=== PATIENT | male | born 1945 ===

== ENCOUNTER 2022-03-30 10:30 | Inpatient (IN) | payer MEDICARE ==
[~2022-03-30] VITALS: Ht 175.3 cm; Wt 73.6 kg
[2022-03-30] MEDS ORDERED: Norco 10-325 T1 EACH PO (14:42)
[2022-03-30] MEDS ORDERED: ELIQUIS5 M2 PO (14:43)
[2022-03-30] MEDS ORDERED: FURO40 PO (14:45)
[2022-03-30] MEDS ORDERED: LEVSOD75 PO (14:46)
[2022-03-30] MEDS ORDERED: TAMS.4ER PO (14:47)
[2022-03-30] MEDS ORDERED: METO50ER PO (14:48)
[2022-03-30] MEDS ORDERED: NORT10 PO (14:49)
[2022-03-30] MEDS ORDERED: PANT40 PO (14:49)
[2022-03-30] MEDS ORDERED: DILT180 PO (14:52)
[2022-03-30] MEDS ORDERED: MUPIROCIN1 G1 TOP (14:53)
[2022-03-30] MEDS ORDERED: INSULANI SC (14:54)
[2022-03-30 15:23] LABS: Hematocrit 33.3 % (37.0-53.0); Hemoglobin 10.4 g/dL (13.5-17.5); Mean Corpuscular HGB 32.9 pg (26.0-34.0); Mean Corpuscular HGB Conc 31.2 g/dL (31.5-36.5); Mean Corpuscular Volume 105 fL (80-100); Mean Platelet Volume 9.1 fL (9.1-12.4); Platelet Count 166 K/mm3 (150-400); RDW Coefficient Variation 17.3 % (11.7-14.2); RDW Standard Deviation 68.5 fL (35.1-46.3); Red Blood Cell Count 3.16 M/mm3 (4.30-5.90); White Blood Cell Count 11.75 K/mm3 (4.00-11.30)
[2022-03-30 15:37] LABS: Albumin, Blood 1.9 g/dL (3.4-5.0); Anion Gap 7 mmol/L (6-16); Blood Urea Nitrogen 29 mg/dL (8-24); Bun/Creatinine Ratio 4.8 (12.0-20.0); CO2, Blood 28 mmol/L (21-32); Calcium, Blood 8.7 mg/dL (8.5-10.1); Chloride, Blood 103 mmol/L (98-108); Creatinine, Blood 6.09 mg/dL (0.60-1.20); Glomerular Filtration Rate 9 (60-); Glucose, Blood 101 mg/dL (70-99); Phosphorus, Blood 3.4 mg/dL (2.5-4.9); Potassium, Blood 3.9 mmol/L (3.5-5.5); Sodium, Blood 138 mmol/L (136-145)
--- NOTE | 2022-03-30 17:21 | NUR ---
SHIFT SUMMARY MR OQUENDO ARRIVED VIA [facility] TRANSPORT TO [facility] AT 1235 THIS AFTERNOON. HE IS AWAKE, ALERT, ORIENTATED X4. ABLE TO ANSWER QUESTIONS REGARDING MEDICAL HISTORY AND MEDICATIONS, THOUGH HE WAS NOT SURE OF SOME OF THE MEDICATION DOSES. VM LEFT ON HIS 'S ANSWERING MACHINE TO CLARIFY SOME OF THE MEDICATIONS. NO RESP DISTRESS OR COUGH ON ROOM AIR. ONLY C/O PAIN IS TO LEFT HIP. HE SAID THAT HE HAD HIP/FEMUR SURGERY IN 2021 AND HAS RESULTING PRESSURE ULCERS TO COCCYX AND BOTH HEELS. COCCYX AREA IS DISCOLORED PURPLE BUT NO OPEN WOUND. MEPILEX APPLIED. LEFT HEEL WOUND IS A DEEP TISSUE WOUND R HEEL WOUND IS A SEMI DEEP TISSUE WOUND. BOTH HAD PURULANT EXUDATE. HEEL WOUNDS CLEANSED AND REDRESSED WITH CALCIUM ALGINATE PACKING, ABD PAD AND KERLEX WRAPS. SKIN TEAR TO LEFT FOREARM HAD MODERATE BLOODY DRAINAGE, CLEANSED AND NON-ADHESIVE DRESSING AND KERLEX WRAP APPLIED. MULTIPLE BRUISES AND SCABS TO ARMS AND LEGS. BOTH LOWER LEGS ARE DISCOLOURED PURPLE. RLE 2+ EDEMA. LLE 1+ EDEMA. AUDABLE PEDAL PULSES BY DOPPLAR. PT HAS NO SENSATION TO HANDS OR FEET. PHOTOGRAPHS TAKEN OF ALL WOUNDS AND SKIN CARE DOUBLE CHECK DONE WITH JUAN WITT. MESSAGE LEFT FOR DR BAIN QUESTIONING IF THERE SHOULD BE AN ORDER FOR AN AIR MATTRESS. PT SAID HE HAS HAD MULTIPLE FALLS AT HOME DUE TO POOR MOBILITY AND BALANCE. HE USES A WALKER AND A WHEELCHAIR AT HOME. ON BEDREST HERE. BED ALARM ON AND CALL LIGHT IN REACH. PT HAS LEFT ARM FISTULA WITH GOOD BRUIT AND THRILL. HE DOES HOME HEMODIALYSIS 3-4 TIMES A WEEK. BEDSIDE HEMODIALYSIS BEING DONE AT THIS TIME. PER REPORT PT RECEIVED 1GM IV [facility] AT [facility] E[facility]LY THIS AM. PHARMACY NOTIFIED OF THIS INFORMATION AND SCHEDULING DOSES ACCORDINGLY. [facility] SCHEDULED FOR 12 AM. PIPERACILLIN INFUSING NOW, OK TO INFUSE WITH DIALYSIS PER PHARMACIST HUGO. CONSULT TO DR RODRIGUEZ CALLED AT 1323. CONSULT TO DR MARTIENZ - CALLED AT 1423 AND LEFT . PT SAID HE VOIDS OCCASIONALLY. HAS NOT VOIDED SINCE BEING AT [facility]. HE SAID HE HAD A NORMAL BM YESTERDAY 03/29, DENIED ANY CONCERNS.
[2022-03-31 04:58] LABS: BASOPHILS ABSOLUTE AUTO 0.07 K/mm3 (0.00-0.23); BASOPHILS PERCENT AUTO 1 % (0-2); EOSINOPHILS ABSOLUTE AUTO 0.22 K/mm3 (0.00-0.68); EOSINOPHILS PERCENT AUTO 2 % (0-6); Hematocrit 31.7 % (37.0-53.0); Hemoglobin 10.3 g/dL (13.5-17.5); IMMATURE GRAN ABSOLUTE AUTO 0.07 K/mm3 (0.00-0.10); IMMATURE GRAN PERCENT AUTO 1 % (0-1); LYMPHOCYTES ABSOLUTE AUTO 0.81 K/mm3 (0.84-5.20); LYMPHOCYTES PERCENT AUTO 8 % (21-46); MONOCYTES ABSOLUTE AUTO 1.28 K/mm3 (0.16-1.47); MONOCYTES PERCENT AUTO 13 % (4-13); Mean Corpuscular HGB 33.2 pg (26.0-34.0); Mean Corpuscular HGB Conc 32.5 g/dL (31.5-36.5); Mean Corpuscular Volume 102 fL (80-100); Mean Platelet Volume 8.6 fL (9.1-12.4); NEUTROPHILS ABSOLUTE AUTO 7.26 K/mm3 (1.96-9.15); NEUTROPHILS PERCENT AUTO 75 % (41-73); Platelet Count 169 K/mm3 (150-400); RDW Coefficient Variation 16.9 % (11.7-14.2); RDW Standard Deviation 63.7 fL (35.1-46.3); White Blood Cell Count 9.71 K/mm3 (4.00-11.30)
--- NOTE | 2022-03-31 05:29 | NUR ---
BUSINESS COMPUTERS TEACHER SUMMARY PT RECVNG HEMODIALYSIS AT BEDSIDE AT THE START OF THE SHIFT; DIALYSIS NURSE REPORTED 3 LITER'S OF FLUID REMOVED. LEFT ARM BANDAGED POST DIALYSIS W/SOME BLEEDING. MONITORED ONGLING F/BLEEDING. FISTULA PATENT. PT HAS HAD SOFT BLOOD PRESSURES--SCHEDULED METOPROLOL WITHELD; BP 87/70 AND 89/53. PT HAS BEEN A/OX4 AND ASYMPTOMATIC. IMAGING AT BEDSIDE F/XRAY OF BLE/FEET/ANKELS; AND ULTRASOUND. PT TOLERATED WELL. BANDAGED WOUNDS TO BOTH FEET AND COCCYX WOUND W/MEPILEX. ASSESSED BANDAGES--ALL CDI. CHANGED OUT HOSPTIAL BED F/SPECIALIZED BED W/AIR MATTRESS P/ORDER. PT HAS BEEN PLEASANT AND COOPERATIVE. C/O PAIN IN HIP; MED P/EMAR X2. NO URINE OUTPUT THIS SHIFT. CALL LIGHT IN REACH. BED ALARM ON.
[2022-03-31 05:46] LABS: Albumin, Blood 1.8 g/dL (3.4-5.0); Anion Gap 8 mmol/L (6-16); Blood Urea Nitrogen 17 mg/dL (8-24); Bun/Creatinine Ratio 4.3 (12.0-20.0); CO2, Blood 29 mmol/L (21-32); Calcium, Blood 8.1 mg/dL (8.5-10.1); Chloride, Blood 97 mmol/L (98-108); Creatinine, Blood 3.96 mg/dL (0.60-1.20); Glomerular Filtration Rate 15 (60-); Glucose, Blood 98 mg/dL (70-99); Magnesium, Blood 2.1 mg/dL (1.6-2.4); Phosphorus, Blood 2.5 mg/dL (2.5-4.9); Potassium, Blood 3.6 mmol/L (3.5-5.5); Sodium, Blood 134 mmol/L (136-145); Vancomycin, Random 8.1 ug/mL
--- NOTE | 2022-03-31 13:27 | NUR ---
DR. ZIMMER CONTACTED DR. ZIMMER ORDERED PROVIDER CONSULT FOR DR. VALLADARES-BLAINE UNAVAILABLE UNTIL , PLAN TO CONSULT @ THAT TIME
--- NOTE | 2022-03-31 14:58 | NUR ---
DR. ERIC NOTIFIED ABOUT BLAINE ERIC PLANS TO TALK TO BLAINE TOMORROW ABOUT PT.
--- NOTE | 2022-03-31 19:22 | NUR ---
SHIFT SUMMARY PT A&OX4 AND IN PLEASENT MOOD T/O SHIFT. PT RESTED COMFORTABLY IN BED, PAIN MEDICATED PER EMAR. FEET PLACED IN FOAM FLOATERS PER DR. ZIMMER ORDERS-BLAINE CONSULT PENDING UNTIL RETURN-DR. ERIC PLANS TO DISCUSS CASE W/ DR. VALLADARES TOMORROW. TOLERATING PO INTAKE WELL @ THIS TIME. CALL LIGHT W/IN REACH. VERY LOW URINE OUTPUT DUE TO HD. TELE IN PLACE.
--- NOTE | 2022-04-01 05:16 | NUR ---
DERMATOLOGY PHYSICIAN ASSISTANT SUMMARY NO ACUTE CHANGES; PT PLEASANT AND COOPERATIVE. BLOOD PRESSURES SOFT OVERNIGHT--PT ASYMPTOMATIC; WITHELD METOPROLOL AT 2100. HS BS 71; GAVE PT A POPSICLE. PT C/O OF PAIN RT T/RT HIP FX--MED P/EMAR. SKIN VERY FRAGILE--DRESSING CDI; FOAM HEEL PROTECTORS INPLACE. NO URINE OUTPUT THIS SHIFT. PT ABLE TO MAKE NEEDS KNOWN. CALL LIGHT IN REACH.
[2022-04-01 06:04] LABS: Vancomycin, Random 20.7 ug/mL
--- NOTE | 2022-04-01 09:59 | NUR ---
dr Winn Consult order Called to the [facility] answering service per Dr Dumont direction. Message left. Continue POC.
--- NOTE | 2022-04-01 10:07 | NUR ---
LOW BP TALKED WITH DR ERIC ABOUT PT LOW BP AND HIS MORNING MEDICATIONS. REPORT THAT THIS NURSE HELD METOPROLOL AND CARDIZEM. DR ERIC WILL REVIEW PT MEDICATIONS. CONTINUE POC.
--- NOTE | 2022-04-01 16:44 | NUR ---
PT RESTED THROUGH THE AFTERNOON. WOUND CARE DONE TO BILATERAL FEET PER ORDER. MEDCIATED FOR HIP PAIN X1. EFFECTIVE. NPO FOR LUNCH PER ORDER. CONTINUE POV.
[2022-04-01] MEDS ORDERED: ALLOPURINOL100 M1 PO (23:00)
[2022-04-01] MEDS ORDERED: CALCIUM CARBON200 M1 PO (23:03)
[2022-04-01] MEDS ORDERED: DOCU100 PO (23:04)
[2022-04-01] MEDS ORDERED: Rena-Vite Tabl0.8 MG PO (23:04)
[2022-04-01] MEDS ORDERED: CATAPRES0.1 MG PO (23:06)
[2022-04-01] MEDS ORDERED: ESZO3 PO (23:07)
[2022-04-01] MEDS ORDERED: Cipro500 MG PO (23:08)
--- NOTE | 2022-04-02 04:12 | NUR ---
NIGHT SHIGT SUMMARY NO ACUTE CHANGES. PT HAD BM 2X THIS SHIFT. STOOL VERY HARD/FORMED. PT AGREEABLE TO STARTING BOWEL CARE--WILL FOLLOW UP W/DAY SHIFT. PT TAKING NORCO DAILY F/PAIN R/T LEFT HIP FX/REPAIR. CHANGED MEPILEX T/COCCYX; AREA RED/RAW. BILATERAL HEEL WOUNDS HAVE MEPILEX AND FOAM PROTECTORS IN PLACE. SKIN VERY FRAGILE. REMAINS ON SPECIALTY AIR MATTRESS. PT HX OF AFIB; 2100 METOPROLOL GIVEN--BP 110/71; 95BPM (MED HAS BEEN WITHHELD PREVIOUS SHIFTS). PT A/OX4. ABLE TO MAKE NEEDS KNOWN. CALL LIGHT IN REACH.
[2022-04-02 05:30] LABS: Albumin, Blood 1.8 g/dL (3.4-5.0); Anion Gap 9 mmol/L (6-16); Blood Urea Nitrogen 31 mg/dL (8-24); Bun/Creatinine Ratio 5.1 (12.0-20.0); CO2, Blood 27 mmol/L (21-32); Calcium, Blood 8.4 mg/dL (8.5-10.1); Chloride, Blood 99 mmol/L (98-108); Creatinine, Blood 6.12 mg/dL (0.60-1.20); Glomerular Filtration Rate 9 (60-); Glucose, Blood 57 mg/dL (70-99); Phosphorus, Blood 3.6 mg/dL (2.5-4.9); Potassium, Blood 3.9 mmol/L (3.5-5.5); Sodium, Blood 135 mmol/L (136-145); Vancomycin, Random 18.7 ug/mL
--- NOTE | 2022-04-02 14:48 | NUR ---
WOUND CARE- PT BL HEEL WOUND CARE ORDERS FOR SANTYL WITH DAILY CHANGES. HOSPITAL FORMULA DOES NOT STOCK. RECIEVED TELEPHONE ORDERS FROM DR. MARTINEZ TO CHANGE PRIMARY DRESSING TO HYDROGEL WITH DAILY CHANGES. PT LOW BG AND NON PATENT IV ARE BEING ADDRESSED DURING WC RN VISIT. WC RN WILL RETURN 04/03/22. CALCIUM ALGINATE/BORDERED FOAM CURRENTLY IN PLACE
--- NOTE | 2022-04-02 18:59 | NUR ---
SHIFT SUMMARY PT RECEIVED DIALYSIS TODAY AND HAD MANY EPISODES OF HYPOGLYCEMIA. BLOOD GLUCOSE CURRENTLY STABLE. WOUND CARE NURSE CONSULTED AND CONTINUES TO BE SEEN BY DOCTOR VALLADARES.
[2022-04-02 22:06] LABS: HBSAG SCREEN Negative (Negative)
--- NOTE | 2022-04-03 04:03 | NUR ---
SHIFT SUMMARY ADMITTED FOR AMS/FOOT ULCERS. FULL CODE. AWAITING IR EVALUATION FOR POSSIBLE REVASCULARIZATION. DR. VALLADARES IS IR CONSULT. DR. MARTINEZ IS PODIATRY CONSULT. DIALYSIS PT. POWERGLIDE IN PLACE RUE. IV ANTIB RX ARE SCHEDULED. PRESSURE ULCER ON COCCYX. FISTULA ON LUE. HYPOGLYCEMIA NOTED ON PREVIOUS SHIFTS. A&O X4, ON RA. HE IS ON BEDREST HERE. HEPARIN IS SCHEDULED. NORCO GIVEN FOR PAIN.
[2022-04-03 05:07] LABS: Vancomycin, Random 14.2 ug/mL
--- NOTE | 2022-04-03 18:24 | NUR ---
SHIFT SUMMARY PT HAS BEEN RESTING QUIETLY SINCE [facility]IVING [facility]. PT C/O 12/06 TO THE LEFT HIP, MEDICATED PER EMAR. R GROIN SITE IS SOFT, NONTENDER, WITH NO HEMATOMA NOTED, DISTAL PULSES ARE PRESENT AND EQUAL THOUGH FAINT. L MEDIAL ANKLE SITE IS NONTENDER WITH NO HEMATOMA NOTED. BLE ARE DARK AND LEATHERY.
--- NOTE | 2022-04-03 23:58 | NUR ---
CARE ASSUMPTION: PATIENT IN BED, REVASC SITE C/D/I AND WNL. LUNG SOUNDS CLEAR T/O. BLE SKIN LEATHERY AND PATIENT REPORTS NO FEELING IN BLE. DENIES CHEST PAIN OR SOB. A&O X4. BED LOW WITH CALL LIGHT IN REACH.
--- NOTE | 2022-04-04 06:23 | NUR ---
SHIFT SUMMARY: PATIENT Q2 TURNS, VS WNL, ENDORSES PAIN IN HIPS, DENIES CHEST PAIN/SOB/N/V. NO ADVERSE EVENTS THIS SHIFT. ANGIO SITE C/D/I/WNL. MEDICATED PER EMAR. POWERGLIDE DRAWS AND FLUSHES. BED LOW WITH CALL LIGHT IN REACH.
[2022-04-04 07:00] LABS: Vancomycin, Random 21.8 ug/mL
[2022-04-04 10:23] LABS: Albumin, Blood 1.8 g/dL (3.4-5.0); Anion Gap 9 mmol/L (6-16); Blood Urea Nitrogen 22 mg/dL (8-24); Bun/Creatinine Ratio 4.3 (12.0-20.0); CO2, Blood 22 mmol/L (21-32); Calcium, Blood 8.3 mg/dL (8.5-10.1); Chloride, Blood 104 mmol/L (98-108); Creatinine, Blood 5.17 mg/dL (0.60-1.20); Glomerular Filtration Rate 11 (60-); Glucose, Blood 97 mg/dL (70-99); Phosphorus, Blood 3.3 mg/dL (2.5-4.9); Potassium, Blood 5.1 mmol/L (3.5-5.5); Sodium, Blood 135 mmol/L (136-145)
--- NOTE | 2022-04-04 17:37 | NUR ---
SHIFT SUMMARY; ASSUMED CARE AT 0700. A/A/OX4. DIALYSIS COMPLETE TODAY, TOLERATED WELL. BED BATH WITH LINEN CHANGE, Q2 TURNS, ATTENDS CHANGE FOR INCONTINANT STOOL. NO URINE OUTPUT DURING SHIFT, BASELINE FOR PT. BILATERAL LOWER LEG DISCOLORATION FROM BELOW KNEE TO FEET. BLACK TO PURPLE IN COLOR. BILATERAL PEDAL PULSES PALBABLE. LEFT REVASC SITE DRESSING TO CLEAN DRY AND INTACT WITHOUT HEMATOMA. BILATERAL HEEL PRESSURE SORES OPEN AND WHEEPING. PHOTOS IN CHART. MEPLIX HEEL PROTECTORS PLACED, FOAM BOOTIES IN PLACE AND LEGS ELEVATED ON PILLOWS. RIGHT HIP REVASC SITE WITH TEGADERM C/D/I, NO HEMATOMA NOTED. VSS, NO ACUTE CHANGES, WILL CONTINUE TO MONITOR AND TREAT UNTIL CHANGE OF SHIFT.
--- NOTE | 2022-04-05 05:28 | NUR ---
SHIFT SUMMARY: PATIENT A&O X4, GROIN SITE C/D/I WNL, VSS ON RA. MEDICATED PER EMAR. PATIENT PLEASANT AND COOPERATIVE WITH CARE. Q2 TURNS AND PATIENT HAS REPOSITIONED SELF IN BED A COUPLE TIMES T/O NIGHT. POWERGLIDE PATENT AND DRAWS. USES CALL LIGHT APPROPRIATELY. NO ADVERSE EVENTS THIS SHIFT. BED LOW WITH ALARM SET AND CALL LIGHT IN PLACE. WILL CONTINUE TO MONITOR UNTIL REPORT TO DAY RN.
--- NOTE | 2022-04-05 18:00 | NUR ---
SHIFT SUMMARY; ASSUMED CARE AT 0700. A/A/OX4, PLEASANT AND COOPERATIVE WITH CARE. ASSISTED WITH REPOSITIONING Q2. LEGS AND HEELS ELEVATED WITH PILLOWS. BILATERAL MEPILEX CHANGED TO HEELS, HEEL BOOTIES ON DURING SHIFT. VSS, NO ACUTE MEDICAL CHANGES DURING SHIFT. WILL CONTINUE TO MONITOR AND TREAT UNTIL CHANGE OF SHIFT.
[2022-04-06 03:51] LABS: Albumin, Blood 1.7 g/dL (3.4-5.0); Anion Gap 7 mmol/L (6-16); Blood Urea Nitrogen 40 mg/dL (8-24); Bun/Creatinine Ratio 8.7 (12.0-20.0); CO2, Blood 27 mmol/L (21-32); Calcium, Blood 8.2 mg/dL (8.5-10.1); Chloride, Blood 99 mmol/L (98-108); Creatinine, Blood 4.59 mg/dL (0.60-1.20); Glomerular Filtration Rate 13 (60-); Glucose, Blood 102 mg/dL (70-99); Phosphorus, Blood 3.3 mg/dL (2.5-4.9); Potassium, Blood 5.4 mmol/L (3.5-5.5); Sodium, Blood 133 mmol/L (136-145)
--- NOTE | 2022-04-06 04:07 | NUR ---
SHIFT SUMMARY NO ACUTE CHANGES THIS SHIFT. VSS. AXO. BEING TURNED BY STAFF WHEN PATIENT ALLOWING. HEELS ALWAYS FLOATING WITH PILLOWS AND HEEL PROTECTORS IN PLACE. REMAINS AFLUTTER. OVERALL IMPOVEMENT NOTED TO HEEL WOUNDS. PT RESTING OFF AND ON T/O SHIFT.
--- NOTE | 2022-04-06 09:12 | NUR ---
CARE NOTE PT DOWN TO DIALYSIS AT 0900, CARDIAC MEDS HELD UNTIL PT RETURNS FROM DIALYSIS TO ASSIST W/ STABLE BP. WILL REASSESS WHEN PT RETURNS FROM DIALYSIS.
[2022-04-06] MEDS ORDERED: Amiodarone HCl200 MG PO (17:56)
[2022-04-06] MEDS ORDERED: JUVEN PACKET1 EAC3 PO (17:57)
[2022-04-06] MEDS ORDERED: Vitamin B-Comp1 EACH PO (17:59)
[2022-04-06] MEDS ORDERED: SENN187 PO (18:00)
[2022-04-06] MEDS ORDERED: Promod946 ML PO (18:00)
[2022-04-06] MEDS ORDERED: VISBIOME 112.51 EACH PO (18:01)
--- NOTE | 2022-04-06 18:42 | NUR ---
SHIFT SUMMARY PT IS ALERT AND ORIENTED X 4, HD DONE TODAY AT 0900. VSS, SPO2 99% VIA ROOM AIR, HE HAS DENIED FEELING SOB, NAUSEA, OR CHEST PAIN/PRESSURE. HE REPORTED PAIN IN BILAT LEGS, SEE EMAR FOR PAIN MANAGEMENT. HEEL PROTECTORS IN PLACE AND HEELS HAVE BEEN FLOATED. MEPILEX DRESSING PLACED OVER COCCYX AREA, PT REPORTED HAVING SKIN TEAR OVER COCCYX PRIOR TO ADMISSION. Q2 TURNING IMPLIMENTED TO PREVENT SKIN BREAKDOWN. ZOSYN INFUSING NOW PER EMAR ORDERS, PT WAITING FOR WHO IS DRIVING FROM [facility] IN ORDER TO DISCHARGE HOME. NO ACUTE CHANGES NOTED. PT NOW APPEARS TO BE SLEEPING, CALL LIGHT IS IN REACH.
--- NOTE | 2022-04-06 20:01 | NUR ---
REMOVED TRINY POWERGLIDE. EDUCATED PATIENT AND ON MEDICATIONS, FOLLOW UPS AND PROCEDURES. THEY HAD NO QUESTIONS AT THIS TIME AND SIGNED THE DISCHARGE PAPERWORK.
== END 2022-04-06 20:05 | disposition home health service (06) | DRG 853 ==
LOC: MEDS 10:33 → PCU 13:03
PROVIDERS: Internal Medicine Nephrology; ADMIT Internal Medicine
PROC: 3E03329 Introduction of Other Anti-infective into Peripheral Vein, Percutaneous Approach (ICD-10-PCS; 2022-03-30)
PROC: 5A1D70Z Performance of Urinary Filtration, Intermittent, Less than 6 Hours Per Day (ICD-10-PCS; 2022-03-30)
PROC: 047D3ZZ Dilation of Left Common Iliac Artery, Percutaneous Approach (ICD-10-PCS; principal; 2022-04-04)
PROC: 047Q3ZZ Dilation of Left Anterior Tibial Artery, Percutaneous Approach (ICD-10-PCS; 2022-04-04)
PROC: B41DYZZ Fluoroscopy of Aorta and Bilateral Lower Extremity Arteries using Other Contrast (ICD-10-PCS; 2022-04-04)
DX: A41.9 Sepsis, unspecified organism (principal); L89.614 Pressure ulcer of right heel, stage 4; L89.624 Pressure ulcer of left heel, stage 4; N18.6 End stage renal disease; E11.52 Type 2 diabetes mellitus with diabetic peripheral angiopathy with gangrene; I12.0 Hypertensive chronic kidney disease with stage 5 chronic kidney disease or end stage renal disease; N39.0 Urinary tract infection, site not specified; I96 Gangrene, not elsewhere classified; E11.628 Type 2 diabetes mellitus with other skin complications; E11.621 Type 2 diabetes mellitus with foot ulcer; I48.0 Paroxysmal atrial fibrillation; E11.22 Type 2 diabetes mellitus with diabetic chronic kidney disease; E11.42 Type 2 diabetes mellitus with diabetic polyneuropathy; E03.9 Hypothyroidism, unspecified; D63.1 Anemia in chronic kidney disease; Z98.890 Other specified postprocedural states; Z87.891 Personal history of nicotine dependence; Z99.2 Dependence on renal dialysis; Z88.2 Allergy status to sulfonamides; Z79.4 Long term (current) use of insulin; Z79.01 Long term (current) use of anticoagulants; Z79.899 Other long term (current) drug therapy; Z28.21 Immunization not carried out because of patient refusal
CPT/HCPCS: 36415; 37220; 37228; 73650; 75625; 75716; 75774; 76937; 80069; 80202; 82947; 83735; 84443; 85025; 85027; 85347; 87340; 93922; 97110; 97162; 99152; 99153; A9270; C1725; C1760; C1769; C1773; C1887; C1894; J1644; J1815; J2250; J2543; J3010; J3370; J7030; J7050; Q9967